=== PATIENT | female | born 1950 | race Caucasian/White ===

== ENCOUNTER 2018-09-27 21:35 | Emergency (ER) | payer MEDICARE ==
[2018-09-27] MEDS ORDERED: Ondansetron ODT 4 MG TAB ONE (22:00)
[2018-09-27 22:09] LABS: #Basophils 0.2 thou/uL (0.0-0.2); #Lymphocytes 2.3 thou/uL (1.20-3.40); #Monocytes 0.6 thou/uL (0.11-0.59); #Neutrophils 4.3 thou/uL (1.40-6.50); %Basophils 1.9 % (0.0-1.0); %Neutrophils 51.2 % (42.0-75.0); Hemoglobin 12.8 g/dL (12.0-16.0); Mean Corpuscular HGB CONC 32.4 g/dL (32.0-36.0); Mean Corpuscular Hemoglobin 31.9 pg (27.0-31.0); Mean Corpuscular Volume 98.3 fL (78.0-98.0); Mean Platelet Volume 7.3 fL (7.4-10.4); Platelet Count 279 thou/uL (130-400); RBC Distribution Width 11.7 % (11.5-14.5); Red Blood Cell (RBC) Count 4.02 mill/uL (4.20-5.40); White Blood Cell (WBC) Count 8.4 thou/uL (4.8-10.8)
[2018-09-27 22:24] LABS: CKMB 1.7 ng/mL (0-6.6); Troponin I Less than 0.010 ng/mL (< 0.028)
[2018-09-27 22:26] LABS: ALT (SGPT) 21 U/L (8-55); AST (SGOT) 25 U/L (5-34); Albumin 4.5 g/dL (3.4-4.8); Alkaline Phosphatase 65 U/L (40-150); Anion Gap 14 mmol/L (10-20); BUN (Urea Nitrogen) 7 mg/dL (9.8-20.1); Bilirubin, Total 0.5 mg/dL (0.2-1.2); Calc. Creatinine Clearance 0 mL/min (70-130); Calcium 10.1 mg/dL (7.8-10.44); Carbon Dioxide 27 mmol/L (23-31); Chloride 92 mmol/L (98-107); Estimated GFR-MDRD 41; Globulin 3.1 g/dL (2.4-3.5); Glucose 210 mg/dL (80-115); Potassium 3.3 mmol/L (3.5-5.1); Protein, Total 7.6 g/dL (6.0-8.3); Sodium 130 mmol/L (136-145)
[2018-09-27] MEDS ORDERED: cloNIDine 0.1 MG TAB ONE (22:41)
== END 2018-09-27 23:25 | disposition home or self-care (01) ==
LOC: NAV ERS 21:35
DX: I10 Essential (primary) hypertension (principal); E11.9 Type 2 diabetes mellitus without complications; E03.9 Hypothyroidism, unspecified; Z79.899 Other long term (current) drug therapy; Z79.84 Long term (current) use of oral hypoglycemic drugs
CPT/HCPCS: 80053; 82553; 84484; 85025; 93005; Q0162

== ENCOUNTER 2025-08-06 13:12 | Emergency (ER) | payer MEDICARE ==
[2025-08-06 14:20] LABS: #Basophils 0.3 thou/uL (0.0-0.2); #Eosinophils 1.1 thou/uL (0.0-0.7); #Lymphocytes 1.8 thou/uL (1.20-3.40); #Monocytes 0.7 thou/uL (0.11-0.59); #Neutrophils 5.7 thou/uL (1.40-6.50); %Basophils 2.7 % (0.0-1.0); %Eosinophils 11.1 % (0.0-10.0); %Lymphocytes 18.8 % (21.0-51.0); %Monocytes 7.2 % (0.0-10.0); %Neutrophils 60.3 % (42.0-75.0); Hematocrit 39.9 % (36.0-47.0); Hemoglobin 14.2 g/dL (12.0-16.0); Mean Corpuscular Hemoglobin 33.4 pg (27.0-31.0); Mean Corpuscular Volume 93.6 fl (78.0-98.0); Platelet Count 344 10x3/uL (130-400); Red Blood Cell (RBC) Count 4.26 mill/uL (4.20-5.40); White Blood Cell (WBC) Count 9.5 10x3/uL (4.8-10.8)
[2025-08-06 14:29] LABS: ALT (SGPT) 22 U/L (Less than 34); AST (SGOT) 25 U/L (11-34); Albumin 4.1 g/dL (3.1-4.5); Alkaline Phosphatase 60 U/L (40-110); Anion Gap 18 mmol/L (10-20); BUN (Urea Nitrogen) 8 mg/dL (9.8-20.1); Bilirubin, Total 0.5 mg/dL (0.3-1.2); Calc. Creatinine Clearance 0 mL/min (70-130); Calcium 9.1 mg/dL (7.8-10.44); Carbon Dioxide 22 mmol/L (23-31); Chloride 94 mmol/L (98-107); Globulin 3.0 g/dL (2.4-3.5); Glucose 112 mg/dL (83-110); Lipase 11 U/L (8-78); Magnesium 1.4 mg/dL (1.6-2.6); Potassium 3.7 mmol/L (3.5-5.1); Sodium 130 mmol/L (136-145)
[2025-08-06 14:31] LABS: Troponin I 0.010 ng/mL (< 0.028)
[2025-08-06 15:30] LABS: Glucose, Urine (Dipstick) Negative (Negative); Leukocyte Negative (Negative); Protein, Urine (Dipstick) Negative (Neg-Trace); Specific Gravity, Urine 1.010 (1.005-1.030)
[2025-08-06 15:40] LABS: Bacteria/HPF 1+ HPF (None Seen); CAUTI Indications for Culture Alt mental st,lethar; Oval Fat Bodies/HPF Rare HPF (None Seen); RBC/HPF 0-3 HPF (0-3); WBC/HPF 0-3 HPF (0-3)
[2025-08-06 15:41] LABS: Urine Culture Reflex No No
[2025-08-06 16:09] LABS: Anion Gap 15 mmol/L (10-20); BUN (Urea Nitrogen) 8 mg/dL (9.8-20.1); Calc. Creatinine Clearance 0 mL/min (70-130); Calcium 8.6 mg/dL (7.8-10.44); Carbon Dioxide 24 mmol/L (23-31); Chloride 98 mmol/L (98-107); Glucose 107 mg/dL (83-110); Potassium 3.6 mmol/L (3.5-5.1); Sodium 133 mmol/L (136-145)
== END 2025-08-06 16:30 | disposition home or self-care (01) ==
LOC: NAV ERS 13:12
DX: I10 Essential (primary) hypertension (principal); E87.1 Hypo-osmolality and hyponatremia; R11.0 Nausea; E11.9 Type 2 diabetes mellitus without complications; Z79.84 Long term (current) use of oral hypoglycemic drugs; Z79.4 Long term (current) use of insulin; Z79.899 Other long term (current) drug therapy
CPT/HCPCS: 36415; 80053; 81001; 83605; 83690; 83735; 84484; 85025; 93005; 96365; J2550; J7030